=== PATIENT | female | born 1965 | race African-American/Black ===

== ENCOUNTER 2022-07-18 04:28 | Day surgery (SDC) | payer OTHER ==
[2022-07-17 14:22] VITALS: BMI 24.9
[2022-07-18 12:27] VITALS: TEMP 98.4
[2022-07-18 13:03] VITALS: BP 117/75; PULSE 63; RESP 12
== END 2022-07-18 13:07 | disposition home or self-care (01) ==
LOC: JASU-ENDO 04:28 → MERGE 13:00 → JASU-ENDO 13:07
PROVIDERS: ATTEND Internal Medicine Gastroenterology
PROC: 0DB78ZX Excision of Stomach, Pylorus, Via Natural or Artificial Opening Endoscopic, Diagnostic (ICD-10-PCS; 2022-07-18)
PROC: 0DB68ZX Excision of Stomach, Via Natural or Artificial Opening Endoscopic, Diagnostic (ICD-10-PCS; principal; 2022-07-18 11:30)
DX: K44.9 Diaphragmatic hernia without obstruction or gangrene (principal); Z87.19 Personal history of other diseases of the digestive system
CPT/HCPCS: 88305-TC; 88342-TC

== ENCOUNTER 2023-09-17 05:05 | Emergency (ER) | payer OTHER ==
[2023-09-17 05:10] VITALS: TEMP 98.2; BMI 24.2
[2023-09-17 06:18] LABS: BASO % 0.9 % (0-2.0); EOS % 2.7 % (0-4.5); HEMATOCRIT 38.3 % (32.4-45.2); HEMOGLOBIN 12.6 GM/dL (10.7-15.3); LYMPH % 36.6 % (8-40); MCH 30.7 pg (25.7-33.7); MCHC 32.9 g/dl (32.0-36.0); MEAN CELL VOLUME 93.4 fl (80-96); MEAN PLT VOLUME 8.3 fl (7.5-11.1); MONO % 9.1 % (3.8-10.2); NEUT % 50.7 % (42.8-82.8); PLATELET COUNT 203 10^3/uL (134-434); RDW 13.5 % (11.6-15.6); WHITE BLOOD COUNT 7.6 K/mm3 (4.0-10.0)
[2023-09-17] MEDS ORDERED: ACETAMINOPHEN INJECTION 100 ML IVPB ONE (06:30)
[2023-09-17] MEDS ORDERED: FAMOTIDINE 20 MG/50 ML IVPB 20 MG/50 ML MG IVPB ONE (06:30)
[2023-09-17] MEDS ORDERED: MAG HYDROX/AL HYDROX/SIMETH 30 ML UNIT-DOSE CUP ONE (06:30)
[2023-09-17] MEDS ORDERED: ONDANSETRON 4 MG/2 ML VIAL ONE (06:30)
[2023-09-17] MEDS: ONDANSETRON 4 MG/2 ML VIAL IVPB ONE (06:40)
[2023-09-17] MEDS: FAMOTIDINE 20 MG/50 ML IVPB 20 MG/50 ML MG IVPB ONE (06:40)
[2023-09-17] MEDS: ACETAMINOPHEN 1000 MG/100 ML BAG IVPB ONE (06:40)
[2023-09-17] MEDS: SODIUM CHLORIDE 0.9% 500 ML INFUS.BAG IV ONE (06:40)
[2023-09-17 06:43] LABS: POTASSIUM 3.8 mmol/L (3.5-5.1)
[2023-09-17 06:45] LABS: CALCIUM 8.7 mg/dL (8.5-10.1)
[2023-09-17 06:46] LABS: ALBUMIN 3.3 g/dl (3.4-5.0); MAGNESIUM 1.7 mg/dL (1.8-2.4)
[2023-09-17 06:49] LABS: CREATININE 0.7 mg/dL (0.55-1.3)
[2023-09-17 06:50] LABS: BILIRUBIN,TOTAL 0.4 mg/dL (0.2-1)
[2023-09-17 06:51] LABS: TOT PROT 6.6 g/dl (6.4-8.2)
[2023-09-17] MEDS: MAG HYDROX/AL HYDROX/SIMETH 30 ML UNIT-DOSE CUP PO ONE (07:30)
[2023-09-17 08:57] LABS: PH,URINE 7.5 (5.0-8.0); URINE APPEARANCE CLEAR; URINE BILIRUBIN NEGATIVE (NEGATIVE); URINE COLOR YELLOW; URINE GLUCOSE (UA) NEGATIVE (NEGATIVE); URINE KETONE NEGATIVE (NEGATIVE); URINE LEUK ESTERASE NEGATIVE (NEGATIVE); URINE NITRITE NEGATIVE (NEGATIVE); URINE PROTEIN NEGATIVE (NEGATIVE); URINE UROBILINOGEN 0.2 mg/dL (0.2-1.0)
[2023-09-17 10:10] VITALS: RESP 20
[2023-09-17 14:32] VITALS: BP 158/82; PULSE 75
== END 2023-09-17 14:32 | disposition home or self-care (01) ==
LOC: JER 05:05
PROC: 3E033GC Introduction of Other Therapeutic Substance into Peripheral Vein, Percutaneous Approach (ICD-10-PCS; principal; 2023-09-17)
PROC: 3E033GC Introduction of Other Therapeutic Substance into Peripheral Vein, Percutaneous Approach (ICD-10-PCS; 2023-09-17)
PROC: 3E033GC Introduction of Other Therapeutic Substance into Peripheral Vein, Percutaneous Approach (ICD-10-PCS; 2023-09-17)
DX: R10.13 Epigastric pain (principal); R07.89 Other chest pain; R11.2 Nausea with vomiting, unspecified; Z20.822 Contact with and (suspected) exposure to COVID-19
CPT/HCPCS: 0241U-QW; 36415; 71250-TC; 71260-TC; 74177-TC; 80053; 81003; 83690; 83735; 84484; 85025; 86850; 86900; 86901; 87086; 93005; 93010; 99285-25; J0131; Q9967